=== PATIENT | female | born 1960 | race Caucasian/White ===

== ENCOUNTER 2016-12-02 10:55 | Outpatient (CLI) | payer BC ==
--- NOTE | 2016-12-02 14:29 | DIAGNOSTIC IMAGING REPORT ---
PROCEDURE: MG BILATERAL SCREENING W/CAD INDICATION: SCREENING TECHNIQUE: Bilateral CC and MLO digital views. COMPARISON: Compared to 11/14/2015, 06/05/2014, 12/06/2013, and 11/29/2013. FINDINGS: Computer-aided detection applied. Moderately dense with a few dystrophic and vascular calcifications. No change. IMPRESSION: 1. Negative mammogram. RESULT CODE: 1- Negative. A. A negative report should not delay biopsy if a dominant or clinically suspicious mass is present. 10-15% of cancers are not identified by x-ray. B. A negative report may reinforce clinical impression. C. Adenosis and dense breasts may obscure an underlying neoplasm. D. False positive reports average 6-10%. E.. A yearly screening mammogram is recommended. A reminder letter will be scheduled.
== END 2016-12-02 23:00 ==
LOC: MAM SRH 10:55
DX: Z12.31 Encounter for screening mammogram for malignant neoplasm of breast (principal)

== ENCOUNTER 2017-02-23 09:44 | Outpatient (CLI) | payer BC ==
--- NOTE | 2017-02-23 10:56 | DIAGNOSTIC IMAGING REPORT ---
PROCEDURE: CT THORAX WITHOUT CONTRAST INDICATION: HX OF THYMOMA status post resection. TECHNIQUE: Noncontrast axial images were obtained of the chest with coronal and sagittal reformations. COMPARISON: 02/05/2016 FINDINGS: Interval complete resection of large left anterior mediastinal soft tissue mass. There is a single surgical clip in the superior mediastinum. No residual anterior mediastinal soft tissue. A very tiny AP window and nonenlarged , stable precarinal lymph nodes are present. No pathologic adenopathy. The thyroid gland is normal. Thoracic aorta is normal caliber without atherosclerotic calcification. The great vessels demonstrates normal branching pattern. The central pulmonary arteries are normal caliber. Heart size is normal. No pericardial effusion. The esophagus is normal in caliber without hiatal hernia. The airway is patent and branches normally. The lungs demonstrate mild scarring in the lateral lingula but are otherwise clear. No pleural effusions or pneumothorax. Osseous structures are intact. The images obtained of the upper abdomen are normal. The gallbladder surgically absent. IMPRESSION: 1. 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 No evidence of residual or recurrent disease. No evidence of bulky adenopathy. 2. Mild lingular scarring. Otherwise normal CT of the chest.
== END 2017-02-23 23:00 ==
LOC: CT SRH 09:44
DX: Z86.018 Personal history of other benign neoplasm (principal)